=== PATIENT | male | born 1980 | race Caucasian/White ===

== ENCOUNTER 2024-06-16 21:23 | Emergency (ER) | payer SELFPAY ==
[~2024-06-16] VITALS: Ht 180.3 cm; Wt 52.2 kg
[2024-06-16 21:30] VITALS: BP 129/65; PULSE 68; RESP 18; TEMP 97.9; O2SAT 97
[2024-06-16] MEDS ORDERED: BACTRIM DS ONE (21:49)
[2024-06-16] MEDS: BACTRIM DS PO STA (21:50)
== END 2024-06-16 22:00 | disposition home or self-care (01) ==
LOC: ER 21:23
DX: L08.0 Pyoderma (principal)
CPT/HCPCS: 99283; J8499; 99284

== ENCOUNTER 2025-01-12 03:15 | Emergency (ER) | payer SELFPAY ==
[~2025-01-12] VITALS: Ht 363.2 cm; Wt 55.3 kg
[2025-01-12 03:25] VITALS: BP 153/82; PULSE 74; RESP 20; TEMP 98.8; O2SAT 95
[2025-01-12] MEDS ORDERED: PHENERGAN ONE (03:30)
[2025-01-12] MEDS ORDERED: PROM25TA10 PO (03:30)
[2025-01-12] MEDS: PHENERGAN IM STA (03:37)
[2025-01-12 03:40] VITALS: BP 110/64; PULSE 74; RESP 20; TEMP 98.8; O2SAT 95
== END 2025-01-12 03:46 | disposition home or self-care (01) ==
LOC: ER 03:15
DX: J06.9 Acute upper respiratory infection, unspecified (principal); R11.14 Bilious vomiting; Z88.8 Allergy status to other drugs, medicaments and biological substances
CPT/HCPCS: 99283; 96372; J2550

== ENCOUNTER 2025-07-27 16:02 | Emergency (ER) | payer SELFPAY ==
[~2025-07-27] VITALS: Ht 180.3 cm; Wt 56.7 kg
[~2025-07-27 16:02] MED LIST: PROM25TA10 PO
[2025-07-27 16:04] VITALS: BP 123/70; PULSE 60; RESP 16; TEMP 98.7; O2SAT 99
[2025-07-27 16:12] VITALS: BP 173/70; PULSE 60; RESP 16; TEMP 98.7; O2SAT 99
[2025-07-27 16:39] VITALS: BP 160/62; PULSE 72; RESP 16; O2SAT 99
== END 2025-07-27 16:40 | disposition home or self-care (01) ==
LOC: ER 16:02
DX: K08.89 Other specified disorders of teeth and supporting structures (principal); Z79.899 Other long term (current) drug therapy; Z88.8 Allergy status to other drugs, medicaments and biological substances; Z95.1 Presence of aortocoronary bypass graft
CPT/HCPCS: 99282